=== PATIENT | male | born 2000 | race African-American/Black ===

== ENCOUNTER 2022-06-11 13:30 | Emergency (ER) | payer MEDICAID, OTHER ==
[~2022-06-11] VITALS: Ht 190.5 cm; Wt 86.5 kg
[2022-06-11 14:13] VITALS: BP 127/62
[2022-06-11] MEDS ORDERED: IBUP800T27 PO (14:58)
== END 2022-06-11 15:02 | disposition home or self-care (01) ==
LOC: ER 13:30
DX: S39.012A Strain of muscle, fascia and tendon of lower back, initial encounter (principal); V89.2XXA Person injured in unspecified motor-vehicle accident, traffic, initial encounter; Y93.89 Activity, other specified; Y92.89 Other specified places as the place of occurrence of the external cause; Y99.8 Other external cause status
CPT/HCPCS: 72100